=== PATIENT | female | born 2005 | race Caucasian/White ===

== ENCOUNTER 2023-02-26 11:29 | Outpatient (CLI) | payer OTHER, SELFPAY ==
--- NOTE | ~2023-02-26 | MR_ITS ---
MRI of the orbits CLINICAL HISTORY: Granuloma of bilateral orbits TECHNIQUE: Axial diffusion-weighted imaging, T1-weighted imaging, and gradient imaging was performed. Coronal T1-weighted imaging was performed. FINDINGS: There is extensive susceptibility artifact centered around the paranasal sinuses, which obs cures visualization of the inferior and medial aspects of the orbits bilaterally. The visualized globes are grossly unremarkable. Visualized extraocular muscles are grossly unremarkab le. No definite intraluminal mass visualized. Visualized portion of the brain is grossly unremarkable. IMPRESSION: No gross abnormality identified. Exam is limited due to extensive susceptibility artifact, as well as lack of T2 fat-sat and STIR images. Reviewed, dictated and finalized at location . IMPRESSION: No gross abnormality identified. Exam is limited due to extensive susceptibilit y artifact, as well as lack of T2 fat-sat and STIR images.
== END 2023-02-26 13:56 ==
PROVIDERS: PCP Pediatrics; Visit Provider Ophthalmology
DX: H05.113 Granuloma of bilateral orbits (principal)
CPT/HCPCS: 70543